=== PATIENT | female | born 1980 | race Caucasian/White ===

== ENCOUNTER 2020-07-26 08:28 | Outpatient (CLI) | payer OTHER, SELFPAY ==
--- NOTE | ~2020-07-26 | MM_ITS ---
EXAMINATION: MM screening gabe BI w kalen HISTORY: History of breast cancer. Breast reduction surgery post lumpectomy. TECHNIQUE: Craniocaudal and mediolateral oblique 3-D tomosynthesis images were obtained and synthetic 2-D images were generated. CAD analysis was submitted and interpreted. COMPARISON: 11/02/2013 BREAST PARENCHYMAL COMPOSITION: The breasts are heterogeneously dense, which may obscure small masses . FINDINGS: There are bilateral breast asymmetries in the upper outer quadrant of both breasts, most li adalberto postsurgical, although correlation with previous interval outside mammograms recommended to asse ss stability. IMPRESSION: 1. Bilateral breast asymmetries. Comparison previous outside mammograms since breast reduction surger y is recommended if available. BI-RADS CATEGORY 0 - INCOMPLETE STUDY, NEED ADDITIONAL IMAGING EVALUATION. Reviewed, dictated and finalized at location A. RAL PRODUCTION WORKER IMPRESSION: 1. Bilateral breast asymmetries. Comparison previous outside mammograms since b reast reduction surgery is recommended if available. BI-RADS CATEGORY 0 - INCOMPLETE STUDY, NEED ADDITIONAL IMAGING EVALUATION.
== END 2020-07-26 08:29 | disposition home or self-care (01) ==
PROVIDERS: Visit Provider Internal Medicine Medical Oncology
DX: Z12.31 Encounter for screening mammogram for malignant neoplasm of breast (principal); R92.8 Other abnormal and inconclusive findings on diagnostic imaging of breast
CPT/HCPCS: 77063; 77067

== ENCOUNTER 2020-08-12 11:01 | Outpatient (CLI) | payer OTHER, SELFPAY ==
--- NOTE | ~2020-08-12 | MMUS_ITS ---
EXAMINATION: MM diagnostic mammo BI, US breast RT limited HISTORY: Follow-up breast asymmetries TECHNIQUE: Additional 3-D tomosynthesis images of the breasts were performed and synthetic 2-D images were generated. CAD analysis was submitted and interpreted. High resolution Limited right breast ult rasound was performed. COMPARISON: Comparison to multiple prior studies sequentially, with oldest reviewed study dated 01/2014. BREAST PARENCHYMAL COMPOSITION: Breast composed of scattered areas of fibroglandular density. FINDINGS: MAMMOGRAPHIC FINDINGS: There is no mammographic evidence for malignancy in the left breast. There is a focal mass in the upp er outer quadrant of the right breast near the nipple which is obscured by dense fibroglandular tissu e. There are no suspicious calcifications. ULTRASOUND: Limited right breast ultrasound: At 7:00, 4 cm from the nipple, there is an irregular shaped hypoecho ic mass measuring 7 x 7 x 6 mm with antiparallel configuration, posterior shadowing. At 9:00, 2 cm fr om the nipple, there is an irregular shaped hypoechoic mass measuring 10 x 10 x 8 mm with next us customs and border officer ior attenuation and antiparallel configuration. IMPRESSION: 1. 2 abnormal masses in the right breast at 7:00, 4 cm from the nipple and 9:00, 2 cm from the nipple . The 9:00 mass likely corresponds to the mammographic abnormality. 2. Stereotactic right breast biopsies recommended. BI-RADS category 4, suspicious findings. Reviewed, dictated and finalized at location A. RVISOR ROD PLACING IMPRESSION: 1. 2 abnormal masses in the right breast at 7:00, 4 cm from the nipple and 9:00 , 2 cm from the nipple. The 9:00 mass likely corresponds to the mammographic ab normality. 2. Stereotactic right breast biopsies recommended. BI-RADS category 4, suspicious findings.
== END 2020-08-12 11:02 | disposition home or self-care (01) ==
LOC: ANHIMG 11:11
PROVIDERS: PCP Nurse Practitioner Family; Visit Provider Internal Medicine Medical Oncology
DX: R92.8 Other abnormal and inconclusive findings on diagnostic imaging of breast (principal)
CPT/HCPCS: 76642; 77066

== ENCOUNTER 2023-09-03 09:05 | Outpatient (CLI) | payer BC, SELFPAY ==
--- NOTE | ~2023-09-03 | NM_ITS ---
EXAMINATION: NM bone scan whole body DATE: 09/03/2023 13:31 INDICATION: Malignant neoplasm of overlapping sites of the right breast. TECHNIQUE: 26.4 mCi Tc-99m HDP was administered intravenously. Delayed whole-body scintigrams were o btained. COMPARISON: Chest CT dated 09/03/2023 FINDINGS: There are a fewer foci of likely skin contamination projecting lateral to the left greater trochanter as well as along the medial margin of the left antecubital fossa. Otherwise physiologic distribution of bone and soft tissue uptake. IMPRESSION: 1. No evident osseous metastatic disease. Reviewed, dictated and finalized at location A. US WELLNESS COORDINATOR
--- NOTE | ~2023-09-03 | CT_ITS ---
EXAMINATION: CT diagnostic chest w con DATE: 09/03/2023 09:47 INDICATION: Chest pain with breathing, history of breast cancer TECHNIQUE: Transaxial computed tomographic images of the chest were obtained after the administration of 75 cc of Omnipaque 350 intravenous contrast. The dose-length product (DLP) was 152.37 mGy-cm. Ite rative reconstruction was used. COMPARISON: None FINDINGS: There are changes of bilateral mastectomy with implant reconstruction. There are airspace o pacities in the anterolateral aspect of the right lung apex. There are minimal subpleural opacities a nteriorly in both breasts. No pleural effusion or pneumothorax. No pathologically enlarged thoracic l ymph nodes are identified. The heart size is normal. The gallbladder is surgically absent. There is m ild enlargement of the common bile duct and central intrahepatic ducts which is likely due to post ch olecystectomy state. IMPRESSION: 1. Airspace opacities of the right lung apex consistent with infection/inflammation versus treatment change. Reviewed, dictated and finalized at location L. IBLE MACHINING SYSTEM MACHINIST IMPRESSION: 1. Airspace opacities of the right lung apex consistent with infection/inflamma tion versus treatment change.
[2023-09-03 09:41] LABS: Estimated Glomerular Filt Rate > 60
== END 2023-09-03 09:06 | disposition home or self-care (01) ==
PROVIDERS: PCP Nurse Practitioner Family; Visit Provider Nurse Practitioner Family
DX: R07.1 Chest pain on breathing (principal)
CPT/HCPCS: 71260; 78306; A9503; Q9967